=== PATIENT | male | born 1945 | race Caucasian/White ===

== ENCOUNTER → 2016-10-30 | Outpatient (CLI) | payer MEDICARE ==
[2014-01-24 11:48] VITALS: BP 100/62
[~2016-10-30] MED LIST: NAPR500T3 PO; RANI300C PO; REGADENOSON 0.4 MG/5 ML DISP.SYRIN. IV ONE; [UNRECOGNIZED DRUG - OTHER] PO
--- NOTE | 2016-10-30 12:54 | RAD ---
APPROVED REPORT Test Type: Pharmacological Stress Nurse/Tech: Mignon Jensen R.N. Test Indications: chest pain, CAD Cardiac History: Family history, Hypertension, CAD, stents, former smoker Medications: See Electronic Medical Record Medical History: See Electronic Medical Record Resting ECG: NSR with Occ PVC Resting Heart Rate: 68 bpm Resting Blood Pressure: 125/70mmHg Pretest Chest Pain: No chest pain Nurse/Tech Notes S1S2, lungs sound clear Consent: The procedure was explained to the patient in lay terms. Informed consent was witnessed. Leonardo eout was entered into [employer]. History and Stress Test performed by Mignon Jensen R.N. Pharm. Details Pharmacologic stress testing was performed using 0.4mg per 5ml of regadenoson given intravenously ove r 7-10 seconds. Stress Symptoms Dyspnea POST EXERCISE Reason for Termination: Infusion complete Max HR: 91 bpm Max Blood Pressure: 129/71mmHg Blood Pressure response to exercise: Normal blood pressure response during stress. Chest Pain: No. Arrhythmia: Yes. con. to have PVCs ST Change: No. INTERPRETATION Stress EKG Conclusion: Baseline EKG showed sinus rhythm. No ischemic changes at peak stress. No arr hythmias. Imaging Protocol IMAGE PROTOCOL: Rest Tc-99m/stress Tc-99m 1 day Rest: Stress: Viability: Radiopharm.Tc99m [id number] Sestamibi Dose11.1mCi 32mCi Duration 15min. 10min. Img Date 10/30/2016 10/30/2016 Inj-Img [id number]. 60min. Rest Admin Site:IV - Left ForearmAdministrator:USHA Cormier Stress Admin Site: IV - Left ForearmAdministrator: USHA Cormier STRESS DATA End Diast. Vol.76.0mlAv. Heart Rate85.0bpm End Syst. Vol.27.0mlCO Index BSA4.1L/min Myocardial Xiab279.0gEject. Elhmfbfn23.0% Stress Rates Pk. Fill Rate3.73EDV/secLVtime Pk. Fill 211.75msec Pk. Empty Rate3.79ESV/secLVtime Pk. Llofr788.20msec 1/3 Pk. Fill0.66EDV/sec Stress Scores Regional WT0.00Summed WT2.00 Regional WM0.00Summed WM1.00 Study quality was good. Left Ventricular size was Normal at Rest and Stress. Lung uptake was Normal. Left Ventricular ejection fraction is 64%. The rest and stress images show normal perfusion, normal contraction and thickening. LV Perf. Quant 17 Seg. SSS0.00 17 Seg. SRS0.00 17 Seg. SDS0.00 Stress Defect Extent (% LAD)0.00Rest Defect Extent (% LAD)0.00Rev. Defect Extent (% LAD)0.00 Stress Defect Extent (% LCX) 0.00Rest Defect Extent (% LCX)6.30Rev. Defect Extent (% LCX)0.00 Stress Defect Extent (% RCA)0.00Rest Defect Extent (% RCA)4.40Rev. Defect Extent (% RCA)0.00 Stress Defect Extent (% TANNER)0.00Rest Defect Extent (% TANNER)4.60Rev. Defect Extent (% TANNER)0.00 Conclusion 1. Regadenoson cardioisotope stress test did not show any evidence of ischemia or infarct. 2. Normal left ventricular systolic function with ejection fraction calculated at 64%. 3. Low risk for cardiac events.
== END | disposition home or self-care (01) ==
LOC: NM 07:20
PROVIDERS: ATTEND Internal Medicine Cardiovascular Disease
DX: R07.9 Chest pain, unspecified (principal)
CPT/HCPCS: 78452; 93017; 96374; 96375; 96376; A9500; J2785

== ENCOUNTER → 2016-12-03 | Day surgery (SDC) | payer MEDICARE ==
[~2016-12-03] MED LIST changes: +ACET-704 PO; +ACETAMINOPHEN 325 MG TABLET. PO ONE; +ASPI81TA50 PO; +AZIT250T6 PO; +HYDROmorphone 2 MG/ML VIAL IV PRN; +IV RINGERS,LACTATED 1000ML 1,000 ML IV SCH; +LIDOCAINE 1% PF 2 ML VIAL. ID PRN; +MORPHINE SULFATE 2 MG/ML DISP.SYRIN. IV PRN; -NAPR500T3 PO; +NAPR500T4 PO; +ONDANSETRON PF 4 MG/2 ML VIAL. IV PRN; +PROCHLORPERAZINE 10 MG/2 ML VIAL. IV PRN; +PROPOFOL 20 ML IV ONE; -REGADENOSON 0.4 MG/5 ML DISP.SYRIN. IV ONE; +fentaNYL PF VIAL 100 MCG/2 ML VIAL IV PRN
[2016-12-03 13:05] VITALS: BP 115/64
== END | disposition home or self-care (01) ==
LOC: ENDOS 11:39
PROVIDERS: ATTEND Internal Medicine Gastroenterology
DX: K22.2 Esophageal obstruction (principal); K29.70 Gastritis, unspecified, without bleeding; K44.9 Diaphragmatic hernia without obstruction or gangrene; K21.9 Gastro-esophageal reflux disease without esophagitis; E78.00 Pure hypercholesterolemia, unspecified; I25.10 Atherosclerotic heart disease of native coronary artery without angina pectoris; I10 Essential (primary) hypertension; M19.91 Primary osteoarthritis, unspecified site; Z87.39 Personal history of other diseases of the musculoskeletal system and connective tissue; Z88.8 Allergy status to other drugs, medicaments and biological substances
CPT/HCPCS: 43239; 43450; 88305; J2704

== ENCOUNTER 2016-12-06 19:12 | Emergency (ER) | payer MEDICARE ==
[~2016-12-06] VITALS: Ht 180.3 cm; Wt 88.5 kg
[~2016-12-06 19:12] MED LIST changes: -ACET-704 PO; -ACETAMINOPHEN 325 MG TABLET. PO ONE; -AZIT250T6 PO; -HYDROmorphone 2 MG/ML VIAL IV PRN; -IV RINGERS,LACTATED 1000ML 1,000 ML IV SCH; -LIDOCAINE 1% PF 2 ML VIAL. ID PRN; -MORPHINE SULFATE 2 MG/ML DISP.SYRIN. IV PRN; +NAPR500T3 PO; -NAPR500T4 PO; -ONDANSETRON PF 4 MG/2 ML VIAL. IV PRN; -PROCHLORPERAZINE 10 MG/2 ML VIAL. IV PRN; -PROPOFOL 20 ML IV ONE; -fentaNYL PF VIAL 100 MCG/2 ML VIAL IV PRN
[2016-12-06 19:57] LABS: BASO % 1 % (0-3); EOS % 1 % (0-3); HEMOGLOBIN 15.7 g/dL (13.0-17.5); LYMPH % 21 % (24-48); MEAN CORPUSCULAR HEMOGLOBIN 32 pg (25-35); MEAN CORPUSCULAR HGB CONC 35 g/dL (31-37); MEAN CORPUSCULAR VOLUME 92 fL (79-100); MONO % 8 % (0-9); NEUT % 69 % (31-73); PLATELET COUNT 153 x10^3/uL (140-400); RED BLOOD COUNT 4.91 x10^6/uL (4.30-5.70); RED CELL DISTRIBUTION WIDTH 12.8 % (11.5-14.5); WHITE BLOOD COUNT 4.7 x10^3/uL (4.0-11.0)
--- NOTE | 2016-12-06 20:00 | PHYS DOC ---
Adult General Chief Complaint Chief Complaint: MULTIPLE COMPLAINTS HPI HPI Patient is a 71 year old male who presents ambulatory to the ED with really 2 separate complaints. #1, the patient had upper endoscopy with esophageal dilatation on 12/03. The next day he was fine. On 12/05, he started to have a bit of a scratchy throat. Since then, he has developed more of a sore throat. He also has a nonproductive cough and he feels an irritation across his upper chest. The symptoms started yesterday but are worse today. He is swallowing without difficulty, and fact he ate a sandwich a couple of hours ago. He denies shortness of air. He has tried [id number] cough medicine without relief. He denies postnasal drainage. He has had some itchy eyes but no other allergy symptoms. He denies fever or chills. #2, the patient has had pain and soreness in the back of his neck, where he describes as his neck muscles, for several months, maybe as much as a year, for about 2 weeks. He has some soreness across his upper shoulders, especially on the left, and pain in the back of his head where the muscles insert. He has taken some ibuprofen without relief. He denies injury. This has never happened before. He has no history of PMR or other related conditions. He has seen his doctor for it and she gave him "some little pills" which did not help. He hasn' t followed up to let her know that didn't help. PCP Dr. Baeza Review of Systems Review of Systems Constitutional: Denies fever or chills [] Eyes: He has had some eye itching that he attributes to seasonal allergies HENT: Denies nasal congestion or runny nose, throat as in history of present illness Respiratory: As in history of present illness Cardiovascular: Denies cardiac sounding chest pain GI: Denies abdominal pain, nausea, vomiting, bloody stools or diarrhea [] Musculoskeletal: Neck pain as in history of present illness Integument: Denies rash or skin lesions [] Neurologic: He does not have a frontal headache Current Medications Current Medications Current Medications Medications (Trade) Dose Ordered Sig/Beck Start Time Stop Time Status Last Admin Dose Admin Acetaminophen/ Codeine Phosphate (Tylenol #3) 1 tab 1X ONCE 12/06/16 21:45 12/06/16 21:46 DC 12/06/16 21:38 1 TAB Allergies Allergies Allergies Coded Allergies Type Severity Reaction Last Updated Verified metoclopramide Allergy Intermediate 12/03/16 No Physical Exam Physical Exam Constitutional: Well developed, well nourished, no acute distress, non-toxic appearance. Pulse ox 95% on room air. Patient is coughing frequently with a small, dry cough, he has no dyspnea , his voice is normal. HENT: Normocephalic, atraumatic, bilateral external ears normal, oropharynx moist, no oral exudates, throat is clear, nose normal. [] Eyes: conjunctiva normal, no discharge. [] Neck: Normal range of motion, supple, no stridor. Mild tenderness of the posterior neck over the trapezius and occipital insertion bilaterally, no spasm , no overlying skin abnormality. Mild tenderness of the trapezius over to the shoulders bilaterally. Cardiovascular:Heart rate regular rhythm, no murmur [] Lungs & Thorax: Bilateral breath sounds clear to auscultation [] Skin: Warm, dry, no erythema, no rash. [] Extremities: No tenderness, no cyanosis, no clubbing, ROM intact, no edema. [] Neurologic: Alert and oriented X 3, normal motor function, normal sensory function, no focal deficits noted. [] Current Patient Data Vital Signs Vital Signs Date Time Temp Pulse Resp B/P (MAP) Pulse Ox O2 Delivery O2 Flow Rate FiO2 12/06/16 21:30 76 20 147/73 (97) 97 Room Air 12/06/16 19:15 98.2 98.2 Lab Values Laboratory Tests Test 12/06/16 19:50 White Blood Count 4.7 x10^3/uL (4.0-11.0) Red Blood Count 4.91 x10^6/uL (4.30-5.70) Hemoglobin 15.7 g/dL (13.0-17.5) Hematocrit 45.0 % (39.0-53.0) Mean Corpuscular Volume 92 fL (79-100) Mean Corpuscular Hemoglobin 32 pg (25-35) Mean Corpuscular Hemoglobin Concent 35 g/dL (31-37) Red Cell Distribution Width 12.8 % (11.5-14.5) Platelet Count 153 x10^3/uL (140-400) Neutrophils (%) (Auto) 69 % (31-73) Lymphocytes (%) (Auto) 21 % (24-48) L Monocytes (%) (Auto) 8 % (0-9) Eosinophils (%) (Auto) 1 % (0-3) Basophils (%) (Auto) 1 % (0-3) Neutrophils # (Auto) 3.2 x10^3uL (1.8-7.7) Lymphocytes # (Auto) 1.0 x10^3/uL (1.0-4.8) Monocytes # (Auto) 0.4 x10^3/uL (0.0-1.1) Eosinophils # (Auto) 0.1 x10^3/uL (0.0-0.7) Basophils # (Auto) 0.0 x10^3/uL (0.0-0.2) Erythrocyte Sedimentation Rate 6 (0-15) Sodium Level 142 mmol/L (136-145) Potassium Level 3.7 mmol/L (3.5-5.1) Chloride Level 106 mmol/L (98-107) Carbon Dioxide Level 25 mmol/L (21-32) Anion Gap 11 (6-14) Blood Urea Nitrogen 20 mg/dL (8-26) Creatinine 1.0 mg/dL (0.7-1.3) Estimated GFR (Cockcroft-Gault) 73.9 BUN/Creatinine Ratio 20 (6-20) Glucose Level 145 mg/dL (70-99) H Calcium Level 8.9 mg/dL (8.5-10.1) Total Bilirubin 0.4 mg/dL (0.2-1.0) Aspartate Amino Transferase (AST) 28 U/L (15-37) Alanine Aminotransferase (ALT) 36 U/L (16-63) Alkaline Phosphatase 112 U/L (46-116) Total Protein 7.1 g/dL (6.4-8.2) Albumin 3.6 g/dL (3.4-5.0) Albumin/Globulin Ratio 1.0 (1.0-1.7) Laboratory Tests 12/06/16 19:50 Laboratory Tests 12/06/16 19:50 EKG EKG [] Radiology/Procedures Radiology/Procedures Two-view chest x-ray read by me. No acute cardiopulmonary abnormality.[] Course & Med Decision Making Course & Med Decision Making Pertinent Labs and Imaging studies reviewed. (See chart for details) 71-year-old male who presents with 2 complaints. #1, he has had some neck muscle pain and soreness for months or even a year, bothering him more for about 2 weeks. This appears to be mild and nonspecific. I told him we can check a sedimentation rate today to see if it is PMR, I am not thinking of anything else diagnosable or treatable in the emergency department. He is agreeable to that plan. #2, he had EGD with dilatation 3 days ago and today has some sore throat, scratchy throat, and a nonproductive cough, but he is swallowing without difficulty. I don't believe the symptoms are related to his endoscopy. He may be coming down with a viral syndrome. We will check a chest x-ray. He is agreeable to that plan. Labs are unremarkable including a normal sedimentation rate. Chest x-ray is clear. I discussed with the patient that we will treat his cough and chest discomfort as bronchitis, I prescribed a Z-Tobi and some Tylenol with Codeine for cough. As far as his neck muscle pain and soreness, I have ruled out polymyalgia rheumatica, I discussed that with the patient and his , I advised him to follow up with his primary care physician for possible referral to physical therapy or pain management. [] Dragon Disclaimer Dragon Disclaimer This electronic medical record was generated, in whole or in part, using a voice recognition dictation system. Departure Departure Impression: Primary Impression: Bronchitis Additional Impressions: Cough Neck pain of over 3 months duration Disposition: 01 HOME, SELF-CARE Condition: STABLE Referrals: LISSETH BAEZA DO (PCP) Patient Instructions: Acute Bronchitis, [id number] Additional Instructions: I believe your cough is caused by bronchitis. Bronchitis is often caused by a virus, "a chest cold" and has to run its course. It may be a bacterial infection so we will treat with antibiotics. For cough, I have prescribed codeine. Do not take this while you are going to drive. It is an opiate and may be sedating. It may be constipating. It should suppress your cough to help to get some sleep. For neck pain, as we discussed, I did a test today called a "sedimentation rate " and the results were normal. This tells us it is not from an arthritis type problem that can sometimes cause neck and shoulder pain called PMR. Let your doctor know this when you follow-up. I recommend follow-up with a primary care doctor or possibly [facility] for your chronic neck pain. Scripts Azithromycin (AZITHROMYCIN TABLET) 250 Mg Tablet 1 PKG PO UD for Bronchitis, #6 TAB Prov: DEO HIGGINBOTHAM MD 12/06/16 Acetaminophen With Codeine (TYLENOL WITH CODEINE #3 TABLET) 1 Each Tablet 1 TAB PO PRN Q4HRS Y for COUGH, #20 TAB Prov: DEO HIGGINBOTHAM MD 12/06/16 Problem Qualifiers DEO HIGGINBOTHAM MD Dec 06, 2016 20:00
[2016-12-06 20:08] LABS: CALCIUM 8.9 mg/dL (8.5-10.1); GFR 73.9; POTASSIUM 3.7 mmol/L (3.5-5.1)
[2016-12-06 20:25] LABS: ALBUMIN 3.6 g/dL (3.4-5.0); TOTAL BILIRUBIN 0.4 mg/dL (0.2-1.0); TOTAL PROTEIN 7.1 g/dL (6.4-8.2)
[2016-12-06 21:30] VITALS: BP 147/73
[2016-12-06] MEDS ORDERED: AZIT250T6 PO (21:36)
[2016-12-06] MEDS ORDERED: ACET-704 PO (21:36)
[2016-12-06] MEDS ORDERED: ACETAMINOPHEN/CODEINE 300/30MG TABLET. PO ONE (21:45)
--- NOTE | 2016-12-07 09:42 | RAD ---
EXAM: Chest 2 views. HISTORY: Cough. COMPARISON: None. FINDINGS: Frontal and lateral views of the chest are obtained. There is mild atelectasis in both bases. There is no pneumothorax or pleural effusion. The heart is not enlarged. IMPRESSION: 1. Bibasilar atelectasis. No confluent infiltrates.
== END 2016-12-06 21:43 | disposition home or self-care (01) ==
LOC: ER 19:12
DX: J40 Bronchitis, not specified as acute or chronic (principal); M54.2 Cervicalgia; H57.8 Other specified disorders of eye and adnexa; Z88.8 Allergy status to other drugs, medicaments and biological substances
CPT/HCPCS: 36415; 71020; 80053; 85025; 85651; 99285

== ENCOUNTER → 2017-02-01 | Outpatient (CLI) | payer MEDICARE ==
[~2017-02-01] MED LIST changes: +ACET-704 PO; +AZIT250T6 PO; +BUPIVACAINE MPF 0.25% 10 ML VIAL. ONE; +IOHEXOL 180 MG/ML 10 ML VIAL. ONE; +ISOS30TA4 PO; -NAPR500T3 PO; +NAPR500T4 PO; +methylPREDNISolone ACETATE 40 MG/ML VIAL. ONE; +methylPREDNISolone ACETATE 80 MG/ML VIAL. ONE
--- NOTE | 2017-02-01 15:27 | PAIN ---
DATE OF SERVICE: 02/01/2017 CHIEF COMPLAINT: Neck pain. HISTORY OF PRESENT ILLNESS: This is a 72-year-old male who presents with history of pain in base of the neck, mid neck and upper neck for about a year, gradually increasing, not a result of any specific injury or action that he is aware of. The patient has had a cervical fusion in 1987 and did fairly well with this. Reports that he has had some increasing pain over the years and much worse over the past 12 months or so. It is becoming more difficult to sleep. Pain is constant, stabbing, throbbing, shooting with some numbness and tingling, radiation to the bilateral shoulders, slightly more on the right than the left at this time but present bilaterally. The patient reports it awakens him from sleep at least twice a night, does not affect his bowel or bladder control or his ability to walk, but has some significant pain with rotational motion, especially looking down, chin to chest or looking up, rotational motion laterally is better. The patient finds himself rotating his whole body when his pain is at its worst in the neck. The patient reports no significant loss of function, but significant radiation in the bilateral upper extremities with some tingling, numbness in both of the hands, usually in the fourth and fifth fingers, somewhat worse again on the right than the left at this time. The patient rates his disability rate from 0-10, 10 being the worst, is 7 with family and home responsibilities, 8 with recreation, 7 with social activity and occupation and life support activities, and 5 with sexual behavior. The patient had MRI scan of the cervical spine showing postoperative changes with fusion at C5-C6 and C7-T1 without residual mass effect or on the thecal sac or neural foraminal at these levels, degenerative changes involving the cervical disks and lateral facets with stenosis at several levels, most marked on the left at C4-C5 and bilaterally at C6-C7, lateral disk osteophyte complex at T1-T2 resulting in marked bilateral neural foraminal stenosis as well. The patient reports he has not had any formal physical therapies recently, did have some chiropractic treatments but this was about a year ago. No significant improvement with these as well. The patient reports no loss of motor function with significant fatigability of the upper extremities and mainly the pain in the base of the neck and base of the skull. PAST MEDICAL HISTORY: Significant for coronary artery disease, arthritis. PAST SURGICAL HISTORY: Previous cervical fusion. Other surgeries include a right shoulder surgery 2014 with replacement, right knee replaced in 2014 and a tendon repair on the right in the elbow as well in 2006. CURRENT MEDICATIONS: Include daily baby aspirin, Zantac, isosorbide. ALLERGIES: The patient has no known drug allergies. FAMILY HISTORY: Significant for no major medical problems or conditions he is aware of. SOCIAL HISTORY: The patient does not drink alcohol, does not smoke, is , lives with his spouse, lives locally in [place], [place] and is currently retired. REVIEW OF SYSTEMS: The patient's review of systems is positive for those items mentioned in history of present illness. All systems reviewed and otherwise negative. It is complete, full and well documented on the patient's chart. PHYSICAL EXAMINATION: VITAL SIGNS: Today, the patient's blood pressure is 133/78, pulse 64, respirations 18, temperature is 98.2 degrees Fahrenheit, height is 5 feet 11 inches, weight is 192 pounds. GENERAL: The patient is awake, alert, oriented, appropriate, very pleasant demeanor. HEENT: Head shows normocephalic, atraumatic. Extraocular movements are intact, symmetrical. Oral cavity: Mucous membranes are moist and pink. Dentition is intact. NECK: Shows anterior throat supple without palpable lymphadenopathy noted. Swallow reflex is symmetrical. CHEST: Shows normal on inspection. Breath sounds are clear to auscultation bilaterally. HEART: Shows S1, S2 clear. No murmurs auscultated. ABDOMEN: Soft, nontender, nondistended. No palpable organomegaly is noted. No rebound or guarding demonstrated. BACK: Shows spine grossly in midline. Normal appearing thoracic kyphosis. Some mild flattening cervical lordotic curvature and lumbar lordotic curvature. Lumbar paraspinous musculature shows symmetrical on inspection with palpation shows some moderate tenderness with palpation bilaterally throughout the upper and middle distribution, more than the inferior aspect of some minor tenderness into the right superior medial trapezius, but not the left with palpation. The patient's neck shows limited rotational motion secondary to pain with stiffness noted in the bilateral paraspinous musculature from the base of the skull superior, medial and inferior bilaterally with some moderate tenderness to palpation, especially on the right side. No specific trigger points identified. No radiation of pain is demonstrated. The patient has significant limitation of movement approximately to 45 degrees, right and left lateral rotation, but with significant guarding in performing these. Extension and flexion is limited as well to only about 30 degrees off neutral position secondary to pain reported in the upper and mid neck as well. The patient's upper extremities show deep tendon reflexes at 2+ in the biceps and triceps tendons. Motor exam is strong with marketing program manager strength rated 5/5 as is bicep and tricep flexion. Peripheral pulses are 2+ radial distribution. No peripheral edema is noted. No clubbing, no cyanosis. Upper extremities are warm and dry to touch, equal in color and appearance. Shoulder shrug is strong and intact without loss of strength bilaterally as is abduction of shoulder to 90 degrees with some minor pain reported in the base of the right neck and shoulder, but no loss of strength. IMPRESSION: 1. This is a 72-year-old male with about 1-year history of increasing pain in the upper mid neck as well as the base of the neck. 2. MRI scan of cervical spine as noted. 3. Coronary artery disease. 4. Arthritis. PLAN: Options were discussed with the patient including conservative medical management, physical therapy, interventional techniques and he would like to pursue interventional techniques. We discussed a cervical facet block, medial branch blocks bilaterally using description as well as anatomical models to describe the procedure. Risks were discussed including but not limited to bleeding, infection, possibility of epidural hematoma and subsequent neurologic compromise, dural puncture, headaches, spinal cord and/or nerve damage, side effects of steroid medication and poor results regarding pain control. The patient understands and wished to proceed. The patient will return to clinic in approximately 2 weeks for followup. He was counseled to return appointment, activity level and side effects to be aware of. 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 PROCEDURE: Bilateral cervical facet medial branch blocks at the C2-C3, C3-C4 and C4-C5 levels using C-arm fluoroscopic guidance under sterile prep and drape using local anesthetic. MEDICATION INJECTED: A total of 120 mg Depo-Medrol plus total of 8 mL 0.25% bupivacaine and 4 mL of Isovue for contrast. CONDITION AT DISCHARGE: Stable. The patient tolerated procedure well, had no complications. GERARDO MORALES MD DR: SONALI/cassie JOB#: [id number] / [id number]
== END | disposition home or self-care (01) ==
LOC: PNCL 07:33
PROVIDERS: ATTEND Anesthesiology
DX: M47.812 Spondylosis without myelopathy or radiculopathy, cervical region (principal); M50.30 Other cervical disc degeneration, unspecified cervical region; M96.1 Postlaminectomy syndrome, not elsewhere classified; I25.10 Atherosclerotic heart disease of native coronary artery without angina pectoris; M19.90 Unspecified osteoarthritis, unspecified site; Z88.8 Allergy status to other drugs, medicaments and biological substances
CPT/HCPCS: 64490; 64491; 64492; J1030; J1040; J3490

== ENCOUNTER → 2017-02-16 | Outpatient (CLI) | payer MEDICARE ==
--- NOTE | 2017-02-16 09:42 | PAIN ---
DATE OF SERVICE: 02/16/2017 PROGRESS NOTE FOR PAIN CLINIC DIAGNOSES: Cervical spondylosis, cervical degenerative disease and cervical post-laminectomy syndrome. HISTORY OF PRESENT ILLNESS: The patient is a 72-year-old male who returns for followup status post bilateral cervical facet medial branch blocks at the C2-C3, C3-C4 and C4-C5 levels. The patient returns reporting about 50% improvement in her neck. Still some pain, more on the right than the left but significantly improved. He has been increasing his daily activities without as much discomfort and is sleeping better at night, had no new motor or sensory deficits. No new complaints. Still some significant pain in the base of the neck, more on the right than the left as well as the middle and upper neck on the right and just the base of the neck on the left. The patient reports pain at 8 on a scale 10 at its worst, 5 on average, 4 is at its least and is 4 today. The patient reports aching, sharp, dull, tight, shooting, stabbing, radiating but is on and off, worse with driving, worse with sleeping with some numbness sensation in the back of the head with lying down. The patient reports it does wake him from sleep at least once or twice a night but is not nearly as intense as it was prior to his last visit. The patient reports no new motor or sensory deficits, no new changes. PHYSICAL EXAMINATION: VITAL SIGNS: Today, the patient's blood pressure is 134/69, pulse 52, respirations are 16, temperature is 98.2 degrees Fahrenheit, height is 5 feet 11 inches and weight is 191 pounds. GENERAL: The patient is awake, alert, oriented, appropriate and very pleasant demeanor. HEENT: Head shows normocephalic and atraumatic. Extraocular movements are intact, symmetrical. Oral cavity: Mucous membranes moist and pink. Dentition is intact. NECK: Shows anterior throat supple without palpable lymphadenopathy noted. Swallow reflex symmetrical. CHEST: Shows normal with inspection. Breath sounds are clear to auscultation bilaterally. HEART: Shows S1 and S2 clear. No murmurs auscultated. ABDOMEN: Soft, nontender and nondistended. No palpable organomegaly is noted. No rebound or guarding demonstrated. BACK: Shows spine grossly in the midline. Cervical spine shows midline as well. Paraspinous musculature shows symmetrical in the cervical distribution with some mild tenderness with palpation bilaterally, more in the right than the left and more in the middle upper aspect of the right cervical paraspinous muscles in the left as well the middle and lower distribution. The patient shows good rotational motion but with some pain reported mostly in the right side with right far lateral rotation and extension but not as much with left. Upper extremities show deep tendon reflexes 2+ in the biceps, triceps tendons. Motor exam is strong with 5/5 glycerin operator strength, bicep and tricep flexion and symmetrical. Peripheral pulses are 2+, radial distribution. No peripheral edema is noted. Options were discussed with the patient. The patient's old chart was reviewed as well as current medication regimen updated. Current review of systems updated today as well. We will proceed with a second set of bilateral facet joint injections, medial branch blocks and cervical C2-C3, C3-C4 and C4-C5 levels with C-arm fluoroscopic guidance. Risks were again discussed including, but not limited to bleeding, infection, possibility of epidural hematoma and subsequent neurological compromise, dural punctures, headaches, spinal cord and/or nerve damage, side effects of steroid medication and poor results regarding pain control. The patient understands and wished to proceed. The patient will return to clinic in approximately 2 weeks for followup. He was counseled as to return appointment, activity level and side effects to be aware of. DIAGNOSIS: Cervical spondylosis with post-cervical laminectomy syndrome and cervical degenerative disk disease. PROCEDURE: Cervical medial branch blocks at the C2-C3, C3-C4, C4-C5 levels bilaterally with fluoroscopic guidance under sterile prep and drape using local anesthetic. MEDICATION INJECTED: A total of 120 mg Depo-Medrol plus a total of 8 mL 0.25% bupivacaine and total of 4 mL of Isovue for contrast. CONDITION AT DISCHARGE: Stable and the patient tolerated the procedure well and had no complications. GERARDO MORALES MD DR: SONALI/cassie JOB#: [id number] / [id number]
== END | disposition home or self-care (01) ==
LOC: PNCL 07:40
PROVIDERS: ATTEND Anesthesiology
DX: M50.30 Other cervical disc degeneration, unspecified cervical region (principal); M47.812 Spondylosis without myelopathy or radiculopathy, cervical region; M96.1 Postlaminectomy syndrome, not elsewhere classified; I25.10 Atherosclerotic heart disease of native coronary artery without angina pectoris; I10 Essential (primary) hypertension; M19.91 Primary osteoarthritis, unspecified site; Z86.69 Personal history of other diseases of the nervous system and sense organs; Z87.39 Personal history of other diseases of the musculoskeletal system and connective tissue; Z88.8 Allergy status to other drugs, medicaments and biological substances
CPT/HCPCS: 64490; 64491; 64492; J1030; J1040; J3490

== ENCOUNTER → 2017-03-02 | Outpatient (CLI) | payer MEDICARE ==
--- NOTE | 2017-03-02 08:39 | PAIN ---
DATE OF SERVICE: 03/02/2017 DIAGNOSES: Cervical degenerative disk disease with cervical spondylosis and post-cervical laminectomy syndrome. HISTORY OF PRESENT ILLNESS: The patient is a 72-year-old male who returns for followup status post bilateral facet medial branch blocks at the cervical level C2-3, C3-4 and C4-5. The patient most recently had on 02/16/2017. The patient did very well with about 50% improvement, better mobility, now reports the pain is only on and off, is not constant. He is having increase in his activity with greater ease and comfort, able to rotate his neck much more comfortably with extension and flexion as well as right and left lateral rotation. The patient reports the left side is feeling much better, near 85% to 90%, but the right side is about 50% improved. The patient reports still some pain in this region on the right as aching, sharp, dull, shooting, radiating, on and off only in intensity, not constant. The patient reports his pain is a 6 on a scale of 10 at its worst, 4 on average, 3 at its least and is a 4 today. The patient reports no new motor or sensory deficits, no new changes. PHYSICAL EXAMINATION: VITAL SIGNS: The patient's blood pressure is 148/73, pulse 54, respirations are 18, temperature is 98.1 degrees Fahrenheit, height is 5 feet 11 inches and weight is 188 pounds. GENERAL: The patient is awake, alert, oriented, appropriate, very pleasant demeanor. HEENT: Head shows normocephalic, atraumatic. Extraocular muscles are intact and symmetrical. Oral cavity: Mucous membranes moist and pink. Dentition is intact. NECK: Shows anterior throat supple without palpable lymphadenopathy noted. Swallow reflex symmetrical. CHEST: Shows normal with inspection. Breath sounds are clear to auscultation bilaterally. HEART: Shows S1, S2 clear. No murmurs auscultated. ABDOMEN: Soft, nontender, nondistended. No palpable organomegaly. No rebound or guarding demonstrated. BACK: Shows spine grossly in midline. Cervical lordotic curvature is slightly flattened. Cervical paraspinous muscle shows symmetrical on inspection, with palpation shows some moderate tenderness, more on the right than the left, only on the right in the middle and upper aspect of the cervical paraspinous muscles without radiation. The patient has full rotational motion both laterally greater than 45 degrees as well as full extension, with some pain reported in the right side base of the neck, but relieved with forward flexion. Upper extremities show deep tendon reflexes 2+ in the biceps, triceps tendons. Motor exam is strong with 5/5 accounts supervisor strength, bicep and tricep flexion. Peripheral pulses are 2+ radial distribution. No peripheral edema is noted. Options were discussed with the patient. The patient's old chart was reviewed. His current medication regimen was updated. Current review of systems updated today as well. We will proceed with a repeat right-sided C3-C4 and C4-C5 facet medial branch blocks with fluoroscopic guidance. Risks were discussed including but not limited to bleeding, infection, possibility of epidural hematoma and subsequent neurological compromise, dural puncture, headaches, spinal cord and/or nerve damage, side effects to steroid medication and poor results regarding pain control. The patient understands and wished to proceed. The patient will return to clinic in approximately 2 weeks for followup, was counseled on return appointment, activity level and side effects to be aware of. DIAGNOSES: Cervical spondylosis, cervical degenerative disk disease, cervical post-laminectomy syndrome. PROCEDURE: Right-sided C3-4 and C4-C5 medial branch facet block using fluoroscopic guidance under sterile prep and drape using local anesthetic. MEDICATION INJECTED: A total of 120 mg Depo-Medrol, plus 2 mL of 0.25% bupivacaine and 1 mL total of Omnipaque for contrast. CONDITION AT DISCHARGE: Stable. The patient tolerated procedure well, had no complications. GERARDO MORALES MD DR: SONALI/cassie JOB#: [id number] / [id number]
== END ==
LOC: PNCL 07:35
PROVIDERS: ATTEND Anesthesiology
DX: M50.321 Other cervical disc degeneration at C4-C5 level (principal); M47.812 Spondylosis without myelopathy or radiculopathy, cervical region; M96.1 Postlaminectomy syndrome, not elsewhere classified; I25.10 Atherosclerotic heart disease of native coronary artery without angina pectoris; K21.9 Gastro-esophageal reflux disease without esophagitis; M19.90 Unspecified osteoarthritis, unspecified site; Z95.5 Presence of coronary angioplasty implant and graft
CPT/HCPCS: 64490; 64491; J1030; J1040; J3490

== ENCOUNTER → 2017-06-04 | Outpatient (CLI) | payer MEDICARE | END | disposition home or self-care (01) | LOC: PNCL 07:55 | DX: M50.10 Cervical disc disorder with radiculopathy, unspecified cervical region (principal); G89.29 Other chronic pain | CPT/HCPCS: 62321 ==

== ENCOUNTER → 2017-06-21 | Outpatient (CLI) | payer MEDICARE ==
[~2017-06-21] MED LIST changes: -ACET-704 PO; -ASPI81TA50 PO; -AZIT250T6 PO; -BUPIVACAINE MPF 0.25% 10 ML VIAL. ONE; +IOHEXOL 180 MG/ML 10 ML VIAL.; -IOHEXOL 180 MG/ML 10 ML VIAL. ONE; -ISOS30TA4 PO; -NAPR500T4 PO; -RANI300C PO; -[UNRECOGNIZED DRUG - OTHER] PO; +methylPREDNISolone ACETATE 40 MG/ML VIAL.; -methylPREDNISolone ACETATE 40 MG/ML VIAL. ONE; +methylPREDNISolone ACETATE 80 MG/ML VIAL.; -methylPREDNISolone ACETATE 80 MG/ML VIAL. ONE
== END ==
LOC: PNCL 10:07
DX: M50.123 Cervical disc disorder at C6-C7 level with radiculopathy (principal); M96.1 Postlaminectomy syndrome, not elsewhere classified; M47.812 Spondylosis without myelopathy or radiculopathy, cervical region
CPT/HCPCS: 62321; J1030; J1040; Q9965

== ENCOUNTER → 2017-08-19 | Outpatient (CLI) | payer MEDICARE ==
[~2017-08-19] MED LIST changes: -IOHEXOL 180 MG/ML 10 ML VIAL.; +IOHEXOL 300 MG/ML 10ML VIAL.; +LIDOCAINE 1% Multi-Dose 50 ML VIAL.; +LIDOCAINE WITH 8.4% SOD BICARB 3 ML DISP.SYRIN.; +LIDOCAINE WITH 8.4% SOD BICARB 3 ML DISP.SYRIN. INJ; -methylPREDNISolone ACETATE 40 MG/ML VIAL.; -methylPREDNISolone ACETATE 80 MG/ML VIAL.
[2017-08-19] MEDS: IOHEXOL 300 MG/ML 10ML VIAL. IT (01:30)
== END | disposition home or self-care (01) ==
LOC: RAD 14:46
DX: M48.02 Spinal stenosis, cervical region (principal); M25.78 Osteophyte, vertebrae; Z98.1 Arthrodesis status
CPT/HCPCS: 72126; 72240; Q9967

== ENCOUNTER → 2017-08-30 | Outpatient (CLI) | payer MEDICARE ==
[2017-08-30 15:33] LABS: ADD MAN DIFF? NO
[2017-08-30 15:38] LABS: BASO % 1 % (0-3); EOS # 0.1 x10^3/uL (0.0-0.7); EOS % 2 % (0-3); HEMATOCRIT 47.5 % (39.0-53.0); HEMOGLOBIN 16.2 g/dL (13.0-17.5); LYMPH # 1.4 x10^3/uL (1.0-4.8); LYMPH % 22 % (24-48); MEAN CORPUSCULAR HEMOGLOBIN 32 pg (25-35); MEAN CORPUSCULAR HGB CONC 34 g/dL (31-37); MEAN CORPUSCULAR VOLUME 93 fL (79-100); MONO # 0.4 x10^3/uL (0.0-1.1); MONO % 7 % (0-9); NEUT # 4.2 x10^3uL (1.8-7.7); NEUT % 68 % (31-73); PLATELET COUNT 190 x10^3/uL (140-400); RED BLOOD COUNT 5.13 x10^6/uL (4.30-5.70); RED CELL DISTRIBUTION WIDTH 13.5 % (11.5-14.5); WHITE BLOOD COUNT 6.1 x10^3/uL (4.0-11.0)
[2017-08-30 16:00] LABS: ALBUMIN/GLOBULIN RATIO 1.1 (1.0-1.7); ALK PHOS 102 U/L (46-116); ALT (SGPT) 19 U/L (16-63); ANION GAP 7 (6-14); AST (SGOT) 21 U/L (15-37); BLOOD UREA NITROGEN 21 mg/dL (8-26); BUN/CREATININE RATIO 16 (6-20); CALCIUM 9.3 mg/dL (8.5-10.1); CARBON DIOXIDE 29 mmol/L (21-32); CHLORIDE 105 mmol/L (98-107); CREATININE 1.3 mg/dL (0.7-1.3); GFR 54.4; GLUCOSE 102 mg/dL (70-99); SODIUM 141 mmol/L (136-145); TOTAL BILIRUBIN 0.6 mg/dL (0.2-1.0); TOTAL PROTEIN 7.6 g/dL (6.4-8.2)
[2017-08-31 22:20] LABS: MRSA BY PCR Negative (Negative)
== END | disposition home or self-care (01) ==
LOC: SURGPAT 13:28
DX: Z01.818 Encounter for other preprocedural examination (principal); M48.02 Spinal stenosis, cervical region; M54.12 Radiculopathy, cervical region
CPT/HCPCS: 36415; 80053; 85025; 87641

== ENCOUNTER → 2017-09-09 | Day surgery (SDC) | payer MEDICARE ==
[~2017-09-09] MED LIST changes: +BACITRACIN 50,000 UNIT in IV NORMAL SALINE 1000ML BAG 1,000 ML IRR; +BUPIVAC MPF-EPI 0.5%-1:200000 30 ML VIAL. INJ; +CITRIC ACID/SODIUM CITRATE 30 ML SOLUTION. PO; +GELATIN SPONGE SIZE 100.; -IOHEXOL 300 MG/ML 10ML VIAL.; +KETOROLAC 60 MG/2 ML INJ FOR OR.; -LIDOCAINE 1% Multi-Dose 50 ML VIAL.; +LIDOCAINE 1% PF 2 ML VIAL. ID; -LIDOCAINE WITH 8.4% SOD BICARB 3 ML DISP.SYRIN.; -LIDOCAINE WITH 8.4% SOD BICARB 3 ML DISP.SYRIN. INJ; +MIDAZOLAM HCL/PF 2 MG/2 ML VIAL.; +MORPHINE SULFATE 2 MG/ML DISP.SYRIN. IV; +ONDANSETRON PF 4 MG/2 ML VIAL. IV; +PROCHLORPERAZINE 10 MG/2 ML VIAL. IV; +REMIFENTANIL 2 MG VIAL. IV; +ROCURONIUM 50 MG/5 ML VIAL.; +THROMBIN TOPICAL 20,000 UNIT SPRAY.SYRN KIT TP; +ceFAZolin 2GM PREMIX 2 GM/50 ML BAG IV; +fentaNYL PF VIAL 100 MCG/2 ML VIAL IV; +fentaNYL PF VIAL 250 MCG/5 ML VIAL
[2017-09-09] MEDS: IV RINGERS,LACTATED 1000ML 1,000 ML IV (08:02)
== END ==
LOC: SURG 06:58
DX: M54.12 Radiculopathy, cervical region (principal); M48.02 Spinal stenosis, cervical region; Z53.8 Procedure and treatment not carried out for other reasons; I25.10 Atherosclerotic heart disease of native coronary artery without angina pectoris; I10 Essential (primary) hypertension; K21.9 Gastro-esophageal reflux disease without esophagitis; Z72.89 Other problems related to lifestyle; Z87.891 Personal history of nicotine dependence; Z87.39 Personal history of other diseases of the musculoskeletal system and connective tissue; Z95.5 Presence of coronary angioplasty implant and graft; Z96.651 Presence of right artificial knee joint; Z96.611 Presence of right artificial shoulder joint; Z98.890 Other specified postprocedural states; Z82.49 Family history of ischemic heart disease and other diseases of the circulatory system
CPT/HCPCS: J0690; J1885; J2250; J3010; J3490; J7030

== ENCOUNTER → 2020-05-03 | Outpatient (CLI) | payer MEDICARE ==
[2017-09-24 11:00] VITALS: BP 130/71
[~2020-05-03] MED LIST changes: +ACET-704 PO; +ASPI81TA50 PO; +AZIT250T6 PO; -BACITRACIN 50,000 UNIT in IV NORMAL SALINE 1000ML BAG 1,000 ML IRR; -BUPIVAC MPF-EPI 0.5%-1:200000 30 ML VIAL. INJ; -CITRIC ACID/SODIUM CITRATE 30 ML SOLUTION. PO; +DOCU-109 PO; -GELATIN SPONGE SIZE 100.; +HYDR-2761 PO; +ISOS30TA68 PO; -KETOROLAC 60 MG/2 ML INJ FOR OR.; -LIDOCAINE 1% PF 2 ML VIAL. ID; -MIDAZOLAM HCL/PF 2 MG/2 ML VIAL.; -MORPHINE SULFATE 2 MG/ML DISP.SYRIN. IV; +MULT-445 PO; +NAPR-514 PO; -ONDANSETRON PF 4 MG/2 ML VIAL. IV; -PROCHLORPERAZINE 10 MG/2 ML VIAL. IV; +RANI300C PO; +REGADENOSON 0.4 MG/5 ML DISP.SYRIN. IV ONE; -REMIFENTANIL 2 MG VIAL. IV; -ROCURONIUM 50 MG/5 ML VIAL.; -THROMBIN TOPICAL 20,000 UNIT SPRAY.SYRN KIT TP; +[UNRECOGNIZED DRUG - OTHER] PO; -ceFAZolin 2GM PREMIX 2 GM/50 ML BAG IV; -fentaNYL PF VIAL 100 MCG/2 ML VIAL IV; -fentaNYL PF VIAL 250 MCG/5 ML VIAL
[2020-05-03 07:57] LABS: BASO % 1 % (0-3); EOS # 0.1 x10^3/uL (0.0-0.7); EOS % 2 % (0-3); HEMATOCRIT 48.4 % (39.0-53.0); HEMOGLOBIN 16.3 g/dL (13.0-17.5); LYMPH # 1.3 x10^3/uL (1.0-4.8); LYMPH % 23 % (24-48); MEAN CORPUSCULAR HEMOGLOBIN 31 pg (25-35); MEAN CORPUSCULAR HGB CONC 34 g/dL (31-37); MEAN CORPUSCULAR VOLUME 91 fL (79-100); MONO # 0.4 x10^3/uL (0.0-1.1); MONO % 8 % (0-9); NEUT # 3.7 x10^3/uL (1.8-7.7); NEUT % 67 % (31-73); PLATELET COUNT 169 x10^3/uL (140-400); WHITE BLOOD COUNT 5.5 x10^3/uL (4.0-11.0)
[2020-05-03 08:17] LABS: CALCIUM 9.3 mg/dL (8.5-10.1); CREATININE 1.2 mg/dL (0.7-1.3); GFR 59.2
[2020-05-03 08:18] LABS: CHOLESTEROL/HDL RATIO 4.2
--- NOTE | 2020-05-03 12:35 | RAD ---
MR#: [id number] Date of Study: 05/03/2020 Ordering Physician: ANTON MICHAUD, Referring Physician: XENA CUBA Tech: RT Bebo Martin) (N) APPROVED REPORT Test Type: Pharmacological Stress Nurse/Tech: Netta Carpenter RN Test Indications: chest pain, dyspnea on exertion Cardiac History: Stent 2013, x-smoker Medications: See Electronic Medical Record Medical History: See Electronic Medical Record Resting ECG: SR Resting Heart Rate: 52 bpm Resting Blood Pressure: 123/67mmHg Pretest Chest Pain: None Nurse/Tech Notes lungs CTA, S1S2 Consent: The procedure was explained to the patient in lay terms. Informed consent was witnessed. Leonardo eout was entered into [employer]. History and Stress Test performed by RT Bebo Martin) (N) Pharm. Details Pharmacologic stress testing was performed using 0.4mg per 5ml of regadenoson given intravenously ove r 7-10 seconds. Stress Symptoms No chest pain or symptoms. POST EXERCISE Reason for Termination: Infusion complete Max HR: 80 bpm Max Blood Pressure: 131/68mmHg Blood Pressure response to exercise: Normal blood pressure response during stress. Heart Rate response to exercise: normal response Chest Pain: No. Arrhythmia: Yes. occasional PVC ST Change: No. INTERPRETATION Stress EKG Conclusion: The resting EKG shows a sinus bradycardia with slight nonspecific ST segment c hanges. The stress EKG shows no significant changes from baseline. No EKG evidence of stress-induced ischemia. Imaging Protocol IMAGE PROTOCOL: Rest Tc-99m/stress Tc-99m 1 day Rest: Stress: Viability: Radiopharm.Tc99m [id number] Sestamibi Dose10.4mCi 31.6mCi Duration 13min. 13min. Img Date 05/03/2020 05/03/2020 Inj-Img Mgzs11ipr. 60min. Rest Admin Site:IV - Right AntecubitalAdministrator:RT Veronica (Stuart)(N) Stress Admin Site: IV - Right AntecubitalAdministrator: RT Bebo Martin)(N) STRESS DATA End Diast. Vol.130.0mlLVEDV index BSA64.0ml End Syst. Vol.45.0mlLVESV index BSA22.0ml Myocardial Iblr366.0gEject. Vuxbifmc66.0% Stress Scores Regional WT0.00Summed WT1.00 Regional WM0.00Summed WM1.00 LV Perfusion The stress scans show no significant defects. The rest scans show no significant defects. Nuclear imaging shows no reversible ischemia or infarct. Wall Motion Left ventricular systolic function is intact with an ejection fraction of 65%. LV Perf. Quant 17 Seg. SSS3.00 17 Seg. SRS0.00 17 Seg. SDS3.00 Stress Defect Extent (% LAD)4.40Rest Defect Extent (% LAD)0.00Rev. Defect Extent (% LAD)4.40 Stress Defect Extent (% LCX) 3.80Rest Defect Extent (% LCX)0.00Rev. Defect Extent (% LCX)3.80 Stress Defect Extent (% RCA)0.00Rest Defect Extent (% RCA)0.00Rev. Defect Extent (% RCA)0.00 Stress Defect Extent (% TANNER)4.60Rest Defect Extent (% TANNER)0.00Rev. Defect Extent (% TANNER)4.60 Conclusion 1. No EKG evidence of stress-induced ischemia. 2. Nuclear imaging shows no reversible ischemia or infarct. 3. Normal left ventricular systolic function with an ejection fraction of 65%. 4. Low risk Lexiscan nuclear stress test. Signed by : Anton Michaud MD Electronically Approved : 05/03/2020 12:35:14
== END ==
LOC: NM 07:52
PROVIDERS: ATTEND Internal Medicine Cardiovascular Disease
DX: R07.9 Chest pain, unspecified (principal)
CPT/HCPCS: 36415; 78452; 80048; 80061; 85025; 93017; A9500; J2785